=== PATIENT | male | born 1950 | race Two or more races ===

== ENCOUNTER 2018-05-18 10:02 | Inpatient (IN) | payer OTHER, MEDICAID, MEDICARE | END 2018-05-24 14:30 | disposition home health service (06) | LOC: ER 10:02 → TELE 13:59 → TELE-WESTW 16:47 | PROC: B2111ZZ Fluoroscopy of Multiple Coronary Arteries using Low Osmolar Contrast (ICD-10-PCS; principal; ~2018-05-18) | PROC: 027035Z Dilation of Coronary Artery, One Artery with Two Drug-eluting Intraluminal Devices, Percutaneous Approach (ICD-10-PCS; ~2018-05-18) | PROC: 4A023N7 Measurement of Cardiac Sampling and Pressure, Left Heart, Percutaneous Approach (ICD-10-PCS; ~2018-05-18) | DX: T82.855A Stenosis of coronary artery stent, initial encounter (principal); I63.9 Cerebral infarction, unspecified; I25.110 Atherosclerotic heart disease of native coronary artery with unstable angina pectoris; E44.1 Mild protein-calorie malnutrition; E87.6 Hypokalemia; E78.5 Hyperlipidemia, unspecified; I12.9 Hypertensive chronic kidney disease with stage 1 through stage 4 chronic kidney disease, or unspecified chronic kidney disease; N18.3 Chronic kidney disease, stage 3 (moderate); E11.22 Type 2 diabetes mellitus with diabetic chronic kidney disease; E11.21 Type 2 diabetes mellitus with diabetic nephropathy; E11.65 Type 2 diabetes mellitus with hyperglycemia; D69.6 Thrombocytopenia, unspecified; I16.0 Hypertensive urgency; H53.2 Diplopia ==

== ENCOUNTER → 2019-05-05 | Emergency (ER) | payer OTHER, MEDICAID ==
[~2019-05-05] VITALS: Ht 157.5 cm; Wt 72.6 kg
[~2019-05-05] MED LIST: AML5T PO; ASPI-111 PO; ASPI325T4 PO; ATOR40TA52 PO; CHOL20007 PO; CLOP75TA41 PO; DOXY100C2 PO; FURO1TAB33 PO; INSU1INJ19 SC; LISI-646 PO; LISI40TA PO; MET25T PO; METF-490 PO; METO-158 PO; PIO30T PO; TAMS1CAP25 PO
[2019-05-05 15:48] LABS: Basophils # (auto) 0 10 ^3/uL (0-0.2); Basophils % (auto) 0.8 % (0.0-2.0); Eosinophils # (auto) 0.3 10 ^3/uL (0-0.8); Eosinophils % (auto) 6.5 % (0.0-7.0); Hematocrit 39.7 % (41.0-53.0); Hemoglobin 13.7 g/dL (13.5-17.5); Lymphocytes # (auto) 1.4 10 ^3/uL (0.4-5.4); Lymphocytes % (auto) 28.5 % (10.0-50.0); Mean Corpuscular Hgb Conc. 34.4 g/dL (32.0-36.0); Mean Corpuscular Volume 90.1 fL (80.0-100.0); Monocytes # (auto) 0.3 10 ^3/uL (0-1.3); Monocytes % (auto) 6.7 % (0.0-12.0); Neutrophils # (auto) 2.8 10 ^3/uL (1.6-8.6); Neutrophils % (auto) 57.5 % (37.0-80.0); Nucleated Red Blood Cells % 0.1 %; Platelet Count (auto) 157 10^3/uL (140-450); Red Blood Cells 4.41 10^6/uL (4.5-5.90); Red Cell Distribution Width 14.6 % (11.8-14.3); White Blood Cell 4.9 10^3/uL (4.4-10.8)
[2019-05-05 16:01] LABS: Albumin 3.5 g/dL (3.4-5.0); Calcium 9.1 mg/dL (8.5-10.1); Magnesium 2.5 mg/dL (1.6-2.6); Potassium 3.9 mmol/L (3.5-5.1)
[2019-05-05 16:17] LABS: BUN/Creatinine Ratio 9.8; Bilirubin, Total 0.5 mg/dL (0.2-1.0); Total Protein 8.3 g/dL (6.4-8.2)
[2019-05-05 16:27] VITALS: BP 205/97
== END | disposition home or self-care (01) ==
LOC: ER 14:40
DX: R00.2 Palpitations (principal); I10 Essential (primary) hypertension; E11.9 Type 2 diabetes mellitus without complications; E78.5 Hyperlipidemia, unspecified; Z86.73 Personal history of transient ischemic attack (TIA), and cerebral infarction without residual deficits; Z79.82 Long term (current) use of aspirin; Z79.01 Long term (current) use of anticoagulants; Z79.899 Other long term (current) drug therapy
CPT/HCPCS: 36415; 71046; 80053; 83735; 84484; 85025; 93005

== ENCOUNTER 2020-06-29 14:16 | Inpatient (IN) | payer OTHER, MEDICAID ==
[~2020-06-29] VITALS: Ht 157.5 cm; Wt 71.3 kg
[~2020-06-29 14:16] MED LIST changes: -AML5T PO; -ASPI-111 PO; -CLOP75TA41 PO; +CLOP75TA70 PO; -LISI-646 PO; +LISI20TA28 PO; -LISI40TA PO; -MET25T PO; -TAMS1CAP25 PO
[2020-06-29] MEDS ORDERED: cefTRIAXone 1GM/50ML D5W 50 ML IV ONE (14:30)
[2020-06-29] MEDS ORDERED: FUROSEMIDE 40 MG/4 ML VIAL IV ONE (15:00)
[2020-06-29 15:28] LABS: Basophils # (auto) 0 10 ^3/uL (0-0.2); Basophils % (auto) 0.5 % (0.0-2.0); Eosinophils # (auto) 0.2 10 ^3/uL (0-0.8); Hematocrit 39.1 % (41.0-53.0); Hemoglobin 13.3 g/dL (13.5-17.5); Lymphocytes # (auto) 2.6 10 ^3/uL (0.4-5.4); Lymphocytes % (auto) 32.6 % (10.0-50.0); Mean Corpuscular Hgb Conc. 34.1 g/dL (32.0-36.0); Mean Corpuscular Volume 88.2 fL (80.0-100.0); Monocytes # (auto) 0.4 10 ^3/uL (0-1.3); Monocytes % (auto) 5.3 % (0.0-12.0); Neutrophils # (auto) 4.7 10 ^3/uL (1.6-8.6); Neutrophils % (auto) 59.6 % (37.0-80.0); Red Blood Cells 4.43 10^6/uL (4.5-5.90)
[2020-06-29 15:45] LABS: Albumin 3.5 g/dL (3.4-5.0); Calcium 9.1 mg/dL (8.5-10.1); Magnesium 2.7 mg/dL (1.6-2.6); Potassium 3.5 mmol/L (3.5-5.1)
[2020-06-29 15:51] LABS: BUN/Creatinine Ratio 9.8; Bilirubin, Total 0.7 mg/dL (0.2-1.0)
[2020-06-29] MEDS ORDERED: ENOXAPARIN SOD 100 MG/1 ML SYRINGE SC ONE (16:00)
[2020-06-29 16:18] LABS: Urine Bacteria NONE SEEN /hpf (None Seen); Urine Blood 1+ /uL (Negative); Urine Hyaline Cast FEW /lpf (0 - 2); Urine Specific Gravity 1.014 (1.001-1.035); Urine WBC 1 /hpf (0 - 3)
[2020-06-29] MEDS ORDERED: ONDANSETRON HCL 4 MG/2 ML VIAL IV PRN (19:30)
[2020-06-29] MEDS ORDERED: NITROGLYCERIN 0.4 MG SL TAB SL PRN (19:30)
[2020-06-29] MEDS ORDERED: ACETAMINOPHEN 500 MG TAB PO PRN (19:30)
[2020-06-29] MEDS ORDERED: MORPHINE SULFATE INJECTION 2 MG/ML SYRG IV PRN ×2 (19:30)
[2020-06-29] MEDS ORDERED: HYDROcodone-ACET 5/325MG TAB PO PRN (19:30)
[2020-06-29] MEDS ORDERED: POTASSIUM CHL 20 Meq TABLET PO ONE (19:30)
[2020-06-29] MEDS ORDERED: CARVEDILOL 3.125 MG TAB PO SCH (19:30)
[2020-06-29] MEDS: NITROGLYCERIN 0.4MG/HR TOPICAL PATCH TD SCH (20:16)
[2020-06-29] MEDS: AZITHROMYCIN 500MG/ 250ML 250 ML IV SCH (20:16)
[2020-06-29] MEDS: CARVEDILOL 3.125 MG TAB PO SCH (20:17)
[2020-06-30] MEDS ORDERED: FUROSEMIDE 40 MG/4 ML VIAL IV SCH (06:00)
[2020-06-30] MEDS ORDERED: ENOXAPARIN SOD 80 MG/0.8ML SYRINGE SC SCH (06:00)
[2020-06-30 07:44] LABS: Basophils # (auto) 0 10 ^3/uL (0-0.2); Basophils % (auto) 0.8 % (0.0-2.0); Eosinophils # (auto) 0.2 10 ^3/uL (0-0.8); Eosinophils % (auto) 4.3 % (0.0-7.0); Hematocrit 35.7 % (41.0-53.0); Hemoglobin 12.2 g/dL (13.5-17.5); Lymphocytes # (auto) 1.5 10 ^3/uL (0.4-5.4); Lymphocytes % (auto) 27.9 % (10.0-50.0); Mean Corpuscular Hemoglobin 29.8 pg (28.0-32.0); Mean Corpuscular Volume 87.7 fL (80.0-100.0); Monocytes # (auto) 0.4 10 ^3/uL (0-1.3); Monocytes % (auto) 8.1 % (0.0-12.0); Neutrophils # (auto) 3.2 10 ^3/uL (1.6-8.6); Neutrophils % (auto) 58.9 % (37.0-80.0); Nucleated Red Blood Cells % 0.1 %; Red Blood Cells 4.07 10^6/uL (4.5-5.90); Red Cell Distribution Width 14.5 % (11.8-14.3); White Blood Cell 5.5 10^3/uL (4.4-10.8)
[2020-06-30 07:56] LABS: BUN/Creatinine Ratio 10.1; Calcium 8.8 mg/dL (8.5-10.1); Potassium 3.9 mmol/L (3.5-5.1)
[2020-06-30] MEDS: CARVEDILOL 3.125 MG TAB PO SCH ×2 (09:00→20:16)
[2020-06-30] MEDS: cefTRIAXone 1GM/50ML D5W 50 ML IV SCH (09:00)
[2020-06-30 09:35] LABS: INR 1.2 (0.9-1.15); Partial Thromboplastin Time 39.9 sec (23.0-31.2)
[2020-06-30] MEDS ORDERED: FAMOTIDINE 20 MG TAB PO SCH (10:00)
[2020-06-30] MEDS: AZITHROMYCIN 500MG/ 250ML 250 ML IV SCH (10:18)
[2020-06-30] MEDS: ASPirin 81 mg TAB PO SCH (10:18)
[2020-06-30] MEDS: NITROGLYCERIN 0.4MG/HR TOPICAL PATCH TD SCH (10:19)
[2020-06-30 10:41] VITALS: BP 146/81
[2020-06-30 12:49] VITALS: BP 146/81
[2020-06-30] MEDS ORDERED: CHOL1TAB5 PO (14:04)
[2020-06-30] MEDS ORDERED: LISI40TA11 PO (14:04)
[2020-06-30] MEDS ORDERED: PIOG1TAB36 PO (14:04)
[2020-06-30] MEDS ORDERED: ASPI-498 PO (14:04)
[2020-06-30] MEDS ORDERED: ALBU0.084 NEB (14:08)
[2020-06-30] MEDS ORDERED: CLON0.1T PO (14:08)
[2020-06-30] MEDS ORDERED: HYDR-4296 PO (14:08)
[2020-06-30] MEDS ORDERED: INSU100I44 SC (14:08)
[2020-06-30] MEDS: hydrALAZINE HCL 25 MG TAB PO SCH ×2 (16:12→21:33)
[2020-06-30 17:00] VITALS: BP 167/91
[2020-06-30] MEDS: SODIUM CHLORIDE 0.9% 1,000 ML IV SCH (17:30)
[2020-06-30 20:00] VITALS: BP 102/58
[2020-06-30 22:00] VITALS: BP 155/97
[2020-07-01 05:00] VITALS: BP 172/99
[2020-07-01] MEDS: ISOSORBIDE DINITRATE 10 MG TAB PO SCH ×4 (05:39→18:12)
[2020-07-01] MEDS: hydrALAZINE HCL 25 MG TAB PO SCH ×3 (05:41→23:31)
[2020-07-01 06:00] LABS: Potassium 3.4 mmol/L (3.5-5.1)
[2020-07-01 06:07] LABS: BUN/Creatinine Ratio 12.1; Calcium 8.3 mg/dL (8.5-10.1)
[2020-07-01] MEDS: SODIUM CHLORIDE 0.9% 1,000 ML IV SCH (06:50)
[2020-07-01 08:58] VITALS: BP 164/92
[2020-07-01] MEDS ORDERED: ENOXAPARIN SOD 80 MG/0.8ML SYRINGE SC SCH (10:00)
[2020-07-01] MEDS: ASPirin 81 mg TAB PO SCH (10:57)
[2020-07-01] MEDS: cefTRIAXone 1GM/50ML D5W 50 ML IV SCH (10:57)
[2020-07-01] MEDS: CARVEDILOL 3.125 MG TAB PO SCH ×2 (10:57→20:09)
[2020-07-01] MEDS: NITROGLYCERIN 0.4MG/HR TOPICAL PATCH TD SCH (11:01)
[2020-07-01 13:00] VITALS: BP 134/84
[2020-07-01] MEDS: AZITHROMYCIN 500MG/ 250ML 250 ML IV SCH (14:13)
[2020-07-01] MEDS ORDERED: FUROSEMIDE 20 MG/2 ML VIAL IV ONE (17:00)
[2020-07-01 22:00] VITALS: BP 150/83
[2020-07-01] MEDS: APIXABAN 5 MG TAB PO SCH (23:31)
[2020-07-02 05:00] VITALS: BP 152/77
[2020-07-02 06:15] LABS: BUN/Creatinine Ratio 12.9; Calcium 8.4 mg/dL (8.5-10.1); Potassium 3.2 mmol/L (3.5-5.1)
[2020-07-02] MEDS: hydrALAZINE HCL 25 MG TAB PO SCH ×2 (06:43→14:00)
[2020-07-02] MEDS: ISOSORBIDE DINITRATE 10 MG TAB PO SCH ×3 (06:44→18:00)
[2020-07-02] MEDS: APIXABAN 5 MG TAB PO SCH (08:29)
[2020-07-02] MEDS: ASPirin 81 mg TAB PO SCH (08:29)
[2020-07-02] MEDS: CARVEDILOL 3.125 MG TAB PO SCH (08:29)
[2020-07-02] MEDS: cefTRIAXone 1GM/50ML D5W 50 ML IV SCH (08:30)
[2020-07-02 09:00] VITALS: BP 142/79
[2020-07-02] MEDS: AZITHROMYCIN 500MG/ 250ML 250 ML IV SCH (09:38)
[2020-07-02] MEDS: NITROGLYCERIN 0.4MG/HR TOPICAL PATCH TD SCH (09:39)
[2020-07-02] MEDS ORDERED: LISINOPRIL 20 MG TAB PO SCH (10:00)
[2020-07-02 12:59] VITALS: BP 141/79
[2020-07-02 17:00] VITALS: BP 158/91
[2020-07-02] MEDS ORDERED: POTASSIUM CHL 20 Meq TABLET PO ONE (17:00)
[2020-07-02] MEDS ORDERED: LISINOPRIL 20 MG TAB PO ONE (17:00)
[2020-07-02 17:11] VITALS: BP 158/91
[2020-07-02] MEDS ORDERED: FUROSEMIDE 40 MG/4 ML VIAL IV SCH (18:00)
[2020-07-03] MEDS ORDERED: POTASSIUM CHL 20 Meq TABLET PO ONE (08:00)
[2020-07-03] MEDS ORDERED: LISINOPRIL 20 MG TAB PO SCH (10:00)
[2020-07-08] MEDS ORDERED: APIXABAN 5 MG TAB PO SCH (22:00)
== END 2020-07-02 18:00 | disposition home or self-care (01) | DRG 291 ==
LOC: ER 14:16 → TELE 19:28 → TELE-CENTR 06-30 10:50
PROVIDERS: ADMIT Nurse Practitioner Acute Care; ATTEND Internal Medicine Geriatric Medicine
PROC: 0W9930Z Drainage of Right Pleural Cavity with Drainage Device, Percutaneous Approach (ICD-10-PCS; principal; 2020-07-01)
DX: I13.0 Hypertensive heart and chronic kidney disease with heart failure and stage 1 through stage 4 chronic kidney disease, or unspecified chronic kidney disease (principal); J96.01 Acute respiratory failure with hypoxia; I50.43 Acute on chronic combined systolic (congestive) and diastolic (congestive) heart failure; J91.8 Pleural effusion in other conditions classified elsewhere; I82.431 Acute embolism and thrombosis of right popliteal vein; I16.9 Hypertensive crisis, unspecified; N17.9 Acute kidney failure, unspecified; I25.10 Atherosclerotic heart disease of native coronary artery without angina pectoris; I48.0 Paroxysmal atrial fibrillation; Z79.02 Long term (current) use of antithrombotics/antiplatelets; E87.6 Hypokalemia; Z79.82 Long term (current) use of aspirin; N18.32 Chronic kidney disease, stage 3b; Z79.4 Long term (current) use of insulin; Z79.899 Other long term (current) drug therapy; Z82.3 Family history of stroke; Z83.3 Family history of diabetes mellitus; Z82.49 Family history of ischemic heart disease and other diseases of the circulatory system; Z86.73 Personal history of transient ischemic attack (TIA), and cerebral infarction without residual deficits; Z91.14 Patient's other noncompliance with medication regimen; Z95.5 Presence of coronary angioplasty implant and graft; E11.22 Type 2 diabetes mellitus with diabetic chronic kidney disease; E78.5 Hyperlipidemia, unspecified; I25.5 Ischemic cardiomyopathy; Z20.822 Contact with and (suspected) exposure to COVID-19
CPT/HCPCS: 36415; 71045; 71046; 76604; 76942; 78582; 80048; 80053; 81001; 82728; 83036; 83605; 83735; 83880; 84484; 85025; 85379; 85610; 85730; 86141; 87040; 87205; 87426; 89051; 93005; 93306; 93970; 96365; 96372; 96375; 99291; G0378; J0696